=== PATIENT | female | born 1970 | race Asian ===

== ENCOUNTER 2018-03-31 15:50 | Outpatient (CLI) | payer OTHER | END 2018-03-31 15:51 | disposition home or self-care (01) | LOC: BICMAMMO 15:50 | DX: Z12.31 Encounter for screening mammogram for malignant neoplasm of breast (principal); N63.10 Unspecified lump in the right breast, unspecified quadrant | CPT/HCPCS: 77063; 77067 ==

== ENCOUNTER 2018-04-22 10:45 | Outpatient (CLI) | payer OTHER | END 2018-04-22 10:46 | disposition home or self-care (01) | LOC: BICULT 10:45 | PROVIDERS: ATTEND Family Medicine | DX: R92.8 Other abnormal and inconclusive findings on diagnostic imaging of breast (principal) ==

== ENCOUNTER → 2018-05-14 | Day surgery (SDC) | payer OTHER ==
--- NOTE | 2018-05-14 11:08 | MMO ---
MAMMAGRAPHIC GUIDED STEREOTACTIC BIOPSY: HISTORY: Breast mass. COMPARISON: Outside facility mammograms 2018. FINDINGS: A stereotactic biopsy was performed for histology analysis of the right breast mass upper outer quadr ant, not the actual calcifications. The breast mass was localized. The skin was prepped and draped in normal sterile fashion. A small d ermatotomy was made. Using a 10-gauge needle, a total of 8 cores were obtained. The patient tolerated the procedure well without complication. The post clip mammogram showed the clip within the mass itself. IMPRESSION: Technically successful breast mass biopsy. POS: [facility]
== END ==
LOC: MAMMO 06:57
PROVIDERS: ATTEND Family Medicine
PROC: 0HBT3ZX Excision of Right Breast, Percutaneous Approach, Diagnostic (ICD-10-PCS; principal; 2018-05-14)
DX: N60.31 Fibrosclerosis of right breast (principal)
CPT/HCPCS: 19081; 76098; 88305; 88341; 88342